=== PATIENT | female | born 1975 | race Caucasian/White ===

== ENCOUNTER 2019-07-31 14:25 | Emergency (ER) | payer OTHER ==
[~2019-07-31] VITALS: Ht 167.6 cm; Wt 59.0 kg
== END 2019-07-31 22:32 | disposition home or self-care (01) ==
LOC: ER 14:25
DX: A90 Dengue fever [classical dengue] (principal)

== ENCOUNTER 2019-09-20 17:42 | Emergency (ER) | payer OTHER ==
[~2019-09-20] VITALS: Ht 165.1 cm; Wt 59.9 kg
== END 2019-09-20 18:43 | disposition home or self-care (01) ==
LOC: ER 17:42
DX: H66.91 Otitis media, unspecified, right ear (principal); H92.01 Otalgia, right ear

== ENCOUNTER 2019-11-02 20:30 | Emergency (ER) | payer OTHER ==
[~2019-11-02] VITALS: Ht 165.1 cm; Wt 58.5 kg
== END 2019-11-02 22:35 | disposition home or self-care (01) ==
LOC: ER 20:30
DX: S50.01XA Contusion of right elbow, initial encounter (principal); W18.09XA Striking against other object with subsequent fall, initial encounter; Y93.89 Activity, other specified; Y92.488 Other paved roadways as the place of occurrence of the external cause; Y99.8 Other external cause status

== ENCOUNTER 2019-12-04 15:00 | Emergency (ER) | payer OTHER ==
[~2019-12-04] VITALS: Ht 165.1 cm; Wt 59.4 kg
== END 2019-12-04 19:31 | disposition home or self-care (01) ==
LOC: ER 15:00
DX: U07.1 COVID-19 (principal); R50.9 Fever, unspecified

== ENCOUNTER 2020-02-19 19:49 | Emergency (ER) | payer OTHER ==
[~2020-02-19] VITALS: Ht 165.1 cm; Wt 61.2 kg
[2020-02-19] MEDS ORDERED: VISTARIL25 MG PO (21:47)
== END 2020-02-19 22:01 | disposition home or self-care (01) ==
LOC: ER 19:49
DX: R53.1 Weakness (principal); Z03.818 Encounter for observation for suspected exposure to other biological agents ruled out

== ENCOUNTER 2020-07-27 10:25 | Outpatient (CLI) | payer OTHER ==
[~2020-07-27 10:25] MED LIST: VISTARIL25 MG PO
== END 2020-07-27 10:49 | disposition home or self-care (01) ==
LOC: RAD 10:25
PROVIDERS: ATTEND Orthopaedic Surgery
DX: M20.012 Mallet finger of left finger(s) (principal); M79.671 Pain in right foot

== ENCOUNTER 2020-12-23 19:40 | Emergency (ER) | payer OTHER ==
[~2020-12-23] VITALS: Ht 172.7 cm; Wt 61.7 kg
== END 2020-12-24 00:11 | disposition home or self-care (01) ==
LOC: ER 19:40
DX: S06.0X9A Concussion with loss of consciousness of unspecified duration, initial encounter (principal); Y92.019 Unspecified place in single-family (private) house as the place of occurrence of the external cause; W23.1XXA Caught, crushed, jammed, or pinched between stationary objects, initial encounter

== ENCOUNTER → 2021-09-13 | Emergency (ER) | payer OTHER ==
[~2021-09-13] VITALS: Ht 167.6 cm; Wt 61.2 kg
== END | disposition home or self-care (01) ==
LOC: ER 13:30
DX: H66.90 Otitis media, unspecified, unspecified ear (principal)

== ENCOUNTER 2022-04-14 11:35 | Outpatient (CLI) | payer OTHER | END 2022-04-14 11:48 | disposition home or self-care (01) | LOC: MAMO-SONO 11:35 | PROVIDERS: ATTEND Obstetrics & Gynecology Maternal & Fetal Medicine | DX: Z12.31 Encounter for screening mammogram for malignant neoplasm of breast (principal); N63.0 Unspecified lump in unspecified breast; N64.4 Mastodynia; N60.11 Diffuse cystic mastopathy of right breast ==